=== PATIENT | male | born 1965 | race Asian ===

== ENCOUNTER 2017-05-29 08:08 | Outpatient (CLI) | payer BC ==
[2017-05-29] MEDS ORDERED: Iopamidol 370 76% 100 ML VIAL ONE (13:54)
== END 2017-05-29 08:09 | disposition home or self-care (01) ==
LOC: BICCT 08:08
PROVIDERS: ATTEND Urology
DX: N20.0 Calculus of kidney (principal); N28.1 Cyst of kidney, acquired; R31.21 Asymptomatic microscopic hematuria; Z90.49 Acquired absence of other specified parts of digestive tract
CPT/HCPCS: 74178

== ENCOUNTER 2021-01-01 08:59 | Outpatient (CLI) | payer BC | END 2021-01-01 09:00 | disposition home or self-care (01) | LOC: ULT 08:59 | PROVIDERS: ATTEND Internal Medicine Gastroenterology | DX: R79.89 Other specified abnormal findings of blood chemistry (principal); K62.9 Disease of anus and rectum, unspecified; Z86.010 Personal history of colon polyps; Z90.49 Acquired absence of other specified parts of digestive tract | CPT/HCPCS: 76705 ==